=== PATIENT | male | born 1925 | race Caucasian/White ===

== ENCOUNTER 2017-02-07 09:56 | Inpatient (IN) | payer MEDICARE, OTHER, MEDICAID ==
[~2017-02-07 09:56] MED LIST: B-121000 MCG/1 IM; CYMBALTA30 MG PO; DULCOLAX-DPS10 MG PR; DUONEB DPS3 ML IH; MAALOX DPS30 ML PO; MIRALAX DPS17 GM PO; PRILOSEC DPS20 MG PO; SENOKOT S1 TAB PO; SINEMET 25-1001 EACH PO; SURFAK DPS240 MG PO; SYNTHROID DPS0.05 MG PO; THERA1 EACH PO; TYLENOL DPS325 MG PO; XALATAN2.5 ML OU
[2017-02-15] MEDS ORDERED: ASA CHILDREN'S81 MG PO (13:09)
[2017-02-15] MEDS ORDERED: MIRALAX PACKET17 GM PO (13:10)
[2017-02-15] MEDS ORDERED: ALOE VESTA141 GM TP (13:14)
[2017-02-15] MEDS ORDERED: CERAVE453 GM TP (13:14)
[2017-02-15] MEDS ORDERED: MUPIROCIN22 GM TP (13:15)
[2017-02-15] MEDS ORDERED: DELTASONE DPS1 MG PO (13:16)
[2017-02-15] MEDS ORDERED: LEVAQUIN DPS500 MG PO (13:16)
== END 2017-02-14 13:39 | DRG 196 ==
DX: J84.112 Idiopathic pulmonary fibrosis (principal); J96.21 Acute and chronic respiratory failure with hypoxia; F05 Delirium due to known physiological condition; I24.8 Other forms of acute ischemic heart disease; G20 Parkinson's disease; F02.80 Dementia in other diseases classified elsewhere, unspecified severity, without behavioral disturbance, psychotic disturbance, mood disturbance, and anxiety; E53.8 Deficiency of other specified B group vitamins; L30.9 Dermatitis, unspecified; E03.9 Hypothyroidism, unspecified; I45.10 Unspecified right bundle-branch block; F32.9 Major depressive disorder, single episode, unspecified; K44.9 Diaphragmatic hernia without obstruction or gangrene; K21.9 Gastro-esophageal reflux disease without esophagitis; M95.4 Acquired deformity of chest and rib; H40.9 Unspecified glaucoma; Z79.82 Long term (current) use of aspirin; Z66 Do not resuscitate; Z86.79 Personal history of other diseases of the circulatory system; Z98.2 Presence of cerebrospinal fluid drainage device